=== PATIENT | female | born 1950 | race Caucasian/White ===

== ENCOUNTER 2018-10-07 00:16 | Inpatient (IN) | payer MEDICAID, BC, OTHER ==
[2018-10-07 01:01] LABS: ADD MAN DIFF? NO
[2018-10-07 01:04] LABS: WHITE BLOOD COUNT 8.3 10^3/ul (4.8-10.8)
[2018-10-07 01:04] LABS: BASOPHILS % 0.1 % (0.0-2.0); EOSINOPHILS # 0.1 10^3/ul (0.0-0.5); EOSINOPHILS % 1.6 % (0.0-7.0); HEMATOCRIT 40.9 % (37.0-47.0); HEMOGLOBIN 13.5 g/dl (12.0-16.0); LYMPHOCYTES # 1.9 10^3/ul (0.8-2.9); LYMPHOCYTES % 23.1 % (15.0-51.0); MEAN CORPUSCULAR HEMOGLOBIN 29.2 pg (29.0-33.0); MEAN CORPUSCULAR VOLUME 88.3 fl (82.0-101.0); MEAN PLATELET VOLUME 10.8 fl (7.4-10.4); MONOCYTE # 0.6 10^3/ul (0.3-0.9); MONOCYTES % 6.8 % (0.0-11.0); NEUTROPHIL # 5.6 10^3/ul (1.6-7.5); NEUTROPHILS % 68.2 % (39.0-77.0); PLATELET COUNT 198 10^3/UL (140-415); RED BLOOD COUNT 4.63 10^6/ul (4.20-5.40); RED CELL DISTRIBUTION WIDTH 13.2 % (11.5-14.5)
[2018-10-07] MEDS: DILTIAZEM 25 MG INJ IV (01:07)
[2018-10-07] MEDS: ASPIRIN 325 MG TAB PO (01:07)
[2018-10-07] MEDS: MAGNESIUM SULFATE 2 GM/50 ML 50 ML IVPB (01:07)
[2018-10-07 01:24] LABS: ANION GAP 14 (5-13); BLOOD UREA NITROGEN 14 mg/dl (7-20); CALCIUM 9.4 mg/dl (8.4-10.2); CARBON DIOXIDE 28 mmol/L (21-31); CHLORIDE 101 mmol/L (97-110); CREATININE 0.62 mg/dl (0.44-1.00); Estimated GFR > 60 mL/min (>60); GLUCOSE 125 mg/dl (70-220); INR 0.87; POTASSIUM 4.3 mmol/L (3.5-5.1); PROTIME 11.9 Sec (11.9-14.9); PT RATIO 0.9; SODIUM 143 mmol/L (135-144)
[2018-10-07 01:25] LABS: PARTIAL THROMBOPLASTIN TIME 23.9 Sec (23.0-35.0)
[2018-10-07 01:37] LABS: TROPONIN-I < 0.012 ng/ml (0.000-0.120)
[2018-10-07 01:41] LABS: FREE THYROXINE INDEX (Calc) 2.71 ug/ml (0.65-3.89); T3 UPTAKE 25.1 % (23.5-40.5); T4 (THYROXINE) 10.8 ug/dl (5.5-11.0)
[2018-10-07] MEDS: DILTIAZEM-D5W 125MG/125ML DRIP 125 ML IV ×2 (02:40→15:37)
[2018-10-07] MEDS ORDERED: METOPROLOL 5 MG INJ IV (03:30)
[2018-10-07] MEDS ORDERED: NACL 0.9% 3 ML SYG IV (04:00)
[2018-10-07] MEDS ORDERED: BISACODYL (EC) 5 MG TAB PO (04:00)
[2018-10-07] MEDS ORDERED: ONDANSETRON 4 MG INJ IV (04:00)
[2018-10-07] MEDS ORDERED: ACETAMINOPHEN 325 MG TAB PO ×2 (04:00)
[2018-10-07] MEDS ORDERED: DOCUSATE SODIUM 100 MG CAP PO (04:00)
[2018-10-07] MEDS ORDERED: NITROGLYCERIN (SL) 0.4 MG TAB SL (04:00)
[2018-10-07] MEDS ORDERED: ENOXAPARIN 80 MG/0.8 ML SYG SC (04:00)
[2018-10-07] MEDS: ENOXAPARIN 80 MG/0.8 ML SYG SC ×2 (06:30→20:21)
[2018-10-07 06:45] LABS: ADD MAN DIFF? NO
[2018-10-07 06:47] LABS: BASOPHILS % 0.1 % (0.0-2.0); EOSINOPHILS # 0.1 10^3/ul (0.0-0.5); EOSINOPHILS % 1.2 % (0.0-7.0); HEMATOCRIT 38.2 % (37.0-47.0); HEMOGLOBIN 12.4 g/dl (12.0-16.0); LYMPHOCYTES # 1.7 10^3/ul (0.8-2.9); MEAN CORPUSCULAR HEMOGLOBIN 29.1 pg (29.0-33.0); MEAN CORPUSCULAR HGB CONC 32.5 g/dl (32.0-37.0); MEAN CORPUSCULAR VOLUME 89.7 fl (82.0-101.0); MEAN PLATELET VOLUME 10.7 fl (7.4-10.4); MONOCYTE # 0.5 10^3/ul (0.3-0.9); NEUTROPHIL # 5.3 10^3/ul (1.6-7.5); NEUTROPHILS % 70.4 % (39.0-77.0); PLATELET COUNT 215 10^3/UL (140-415); RED BLOOD COUNT 4.26 10^6/ul (4.20-5.40); RED CELL DISTRIBUTION WIDTH 13.2 % (11.5-14.5)
[2018-10-07 06:47] LABS: WHITE BLOOD COUNT 7.6 10^3/ul (4.8-10.8)
[2018-10-07 07:06] LABS: HEMOGLOBIN A1C 7.1 % (0-5.9)
[2018-10-07 07:09] LABS: CREATINE KINASE 35 IU/L (23-200)
[2018-10-07 07:21] LABS: CK INDEX 0.9; CK-MB 0.33 ng/ml (0.0-2.4); TROPONIN-I < 0.012 ng/ml (0.000-0.120)
[2018-10-07 07:29] LABS: ALANINE AMINOTRANSFERASE 18 IU/L (13-69); ALBUMIN 3.8 g/dl (3.3-4.9); ALBUMIN/GLOBULIN RATIO 1.18; ALKALINE PHOSPHATASE 72 IU/L (42-121); ANION GAP 7 (5-13); ASPARTATE AMINO TRANSFERASE 17 IU/L (15-46); BILIRUBIN,INDIRECT 0.4 mg/dl (0-1.1); BILIRUBIN,TOTAL 0.4 mg/dl (0.2-1.3); BLOOD UREA NITROGEN 13 mg/dl (7-20); CALCIUM 9.1 mg/dl (8.4-10.2); CARBON DIOXIDE 31 mmol/L (21-31); CHLORIDE 105 mmol/L (97-110); CHOL/HDL RATIO 13.9 RATIO; CHOLESTEROL 320 mg/dl (100-200); CREATININE 0.68 mg/dl (0.44-1.00); Estimated GFR > 60 mL/min (>60); GLUCOSE 142 mg/dl (70-220); HDL CHOLESTEROL 23 mg/dl (35-98); LDL CHOLESTEROL,CALCULATED 264 mg/dl; MAGNESIUM 2.4 mg/dl (1.7-2.5); SODIUM 143 mmol/L (135-144); TRIGLYCERIDES 167 mg/dl (0-149)
[2018-10-07] MEDS ORDERED: DOXYCYCLINE 100 MG in SOD CHLORIDE 0.9% 250 ML IVPB (08:30)
[2018-10-07] MEDS ORDERED: ASPIRIN 81 MG TAB PO (09:00)
[2018-10-07] MEDS: LISINOPRIL 5 MG TAB PO (09:00)
[2018-10-07] MEDS: ESCITALOPRAM 10 MG TAB PO (09:00)
[2018-10-07] MEDS: ASPIRIN 81 MG TAB PO (09:00)
[2018-10-07] MEDS: DOXYCYCLINE 100 MG in SOD CHLORIDE 0.9% 250 ML IVPB ×2 (10:41→21:00)
[2018-10-07] MEDS ORDERED: GLUCAGON 1 MG INJ IM (13:00)
[2018-10-07] MEDS ORDERED: GLUCOSE GEL 15 GRAM TUBE PO ×2 (13:00)
[2018-10-07] MEDS ORDERED: GLUCOSE GEL 15 GRAM TUBE BUCCAL (13:00)
[2018-10-07] MEDS ORDERED: DEXTROSE 50% 50 ML SYRINGE IV ×2 (13:00)
[2018-10-07 13:41] LABS: CREATINE KINASE 28 IU/L (23-200)
[2018-10-07 13:52] LABS: CK INDEX 0.8; CK-MB < 0.22 ng/ml (0.0-2.4); TROPONIN-I < 0.012 ng/ml (0.000-0.120)
[2018-10-07] MEDS: INSULIN ASPART [NOVOLOG] 3 ML PEN SC ×2 (17:24→20:24)
[2018-10-07] MEDS: ATORVASTATIN 80 MG TAB PO (20:17)
[2018-10-07] MEDS: DILTIAZEM 60 MG TAB PO (20:17)
[2018-10-07] MEDS: DIGOXIN 500 MCG INJ IV (20:17)
[2018-10-08] MEDS: DIGOXIN 500 MCG INJ IV ×3 (00:06→07:49)
[2018-10-08] MEDS: ACCU-CHEK XX (01:24)
[2018-10-08 06:53] LABS: ADD MAN DIFF? NO
[2018-10-08 06:58] LABS: WHITE BLOOD COUNT 8.1 10^3/ul (4.8-10.8)
[2018-10-08 06:58] LABS: BASOPHILS % 0.1 % (0.0-2.0); EOSINOPHILS # 0.1 10^3/ul (0.0-0.5); EOSINOPHILS % 1.1 % (0.0-7.0); HEMATOCRIT 40.3 % (37.0-47.0); HEMOGLOBIN 13.2 g/dl (12.0-16.0); LYMPHOCYTES # 1.4 10^3/ul (0.8-2.9); LYMPHOCYTES % 16.9 % (15.0-51.0); MEAN CORPUSCULAR HEMOGLOBIN 29.3 pg (29.0-33.0); MEAN CORPUSCULAR HGB CONC 32.8 g/dl (32.0-37.0); MEAN CORPUSCULAR VOLUME 89.4 fl (82.0-101.0); MEAN PLATELET VOLUME 10.6 fl (7.4-10.4); MONOCYTE # 0.5 10^3/ul (0.3-0.9); MONOCYTES % 5.8 % (0.0-11.0); NEUTROPHIL # 6.1 10^3/ul (1.6-7.5); NEUTROPHILS % 75.6 % (39.0-77.0); PLATELET COUNT 196 10^3/UL (140-415); RED BLOOD COUNT 4.51 10^6/ul (4.20-5.40)
[2018-10-08 07:39] LABS: ANION GAP 9 (5-13); BLOOD UREA NITROGEN 11 mg/dl (7-20); CALCIUM 9.4 mg/dl (8.4-10.2); CARBON DIOXIDE 29 mmol/L (21-31); CHLORIDE 101 mmol/L (97-110); CREATININE 0.66 mg/dl (0.44-1.00); Estimated GFR > 60 mL/min (>60); GLUCOSE 199 mg/dl (70-220); POTASSIUM 4.9 mmol/L (3.5-5.1); SODIUM 139 mmol/L (135-144)
[2018-10-08 07:41] LABS: PHOSPHORUS 3.3 mg/dl (2.5-4.9)
[2018-10-08 07:41] LABS: MAGNESIUM 1.9 mg/dl (1.7-2.5)
[2018-10-08] MEDS: INSULIN ASPART [NOVOLOG] 3 ML PEN SC ×4 (07:55→20:56)
[2018-10-08] MEDS: ONDANSETRON 4 MG INJ IV (07:58)
[2018-10-08] MEDS: DOXYCYCLINE 100 MG in SOD CHLORIDE 0.9% 250 ML IVPB ×2 (09:00→20:57)
[2018-10-08] MEDS: LISINOPRIL 5 MG TAB PO (09:39)
[2018-10-08] MEDS: ESCITALOPRAM 10 MG TAB PO (09:39)
[2018-10-08] MEDS: ASPIRIN 81 MG TAB PO (09:39)
[2018-10-08] MEDS: DILTIAZEM 60 MG TAB PO ×3 (09:39→20:49)
[2018-10-08] MEDS: ENOXAPARIN 80 MG/0.8 ML SYG SC ×2 (09:45→20:56)
[2018-10-08] MEDS ORDERED: TRIMETHOBENZAMIDE 100 MG/ML VIAL IM (11:00)
[2018-10-08] MEDS ORDERED: ONDANSETRON INJ 8 MG in SOD CHLORIDE 0.9% 50 ML IV (11:00)
[2018-10-08] MEDS: GUAIFENESIN 20 MG/ML 5ML CUP PO ×2 (15:15→21:30)
[2018-10-08] MEDS ORDERED: ONDANSETRON 4 MG INJ IV (16:00)
[2018-10-08] MEDS: ATORVASTATIN 80 MG TAB PO (20:49)
[2018-10-08] MEDS: CEPASTAT LOZENGE MT (21:30)
[2018-10-09] MEDS: ACCU-CHEK XX (01:05)
[2018-10-09] MEDS: INSULIN ASPART [NOVOLOG] 3 ML PEN SC ×3 (08:02→17:57)
[2018-10-09] MEDS: ESCITALOPRAM 10 MG TAB PO (09:48)
[2018-10-09] MEDS: DOXYCYCLINE 100 MG in SOD CHLORIDE 0.9% 250 ML IVPB (09:48)
[2018-10-09] MEDS: DILTIAZEM 60 MG TAB PO ×2 (09:50→13:01)
[2018-10-09] MEDS: ASPIRIN 81 MG TAB PO (09:50)
[2018-10-09] MEDS: LISINOPRIL 5 MG TAB PO (09:50)
[2018-10-09] MEDS: ENOXAPARIN 80 MG/0.8 ML SYG SC (09:58)
[2018-10-09] MEDS: DIGOXIN 0.25 MG TAB PO (13:01)
[2018-10-09] MEDS ORDERED: APIXABAN 5 MG TABLET PO (21:00)
== END 2018-10-09 17:00 | disposition home or self-care (01) | DRG 309 ==
LOC: E/R 00:16 → TEL 03:32
DX: I48.91 Unspecified atrial fibrillation (principal); E87.1 Hypo-osmolality and hyponatremia; J06.9 Acute upper respiratory infection, unspecified; E66.9 Obesity, unspecified; Z68.30 Body mass index [BMI] 30.0-30.9, adult; R07.9 Chest pain, unspecified; I10 Essential (primary) hypertension; E11.9 Type 2 diabetes mellitus without complications; F32.9 Major depressive disorder, single episode, unspecified; J40 Bronchitis, not specified as acute or chronic
CPT/HCPCS: 36415; 71045; 80048; 80053; 80061; 82550; 82553; 82962; 83036; 83735; 84100; 84436; 84443; 84479; 84484; 85025; 85610; 85730; 93005; 93306; 96365; 96375; 97116; 97162; 97530; 99285-25